=== PATIENT | male | born 1965 | race Caucasian/White ===

== ENCOUNTER 2019-07-02 14:36 | Emergency (ER) | payer SELFPAY ==
--- NOTE | 2019-07-02 14:43 | ED Physician Documentation ---
General Adult - HISTORIAN Historian: patient - HPI Stated Complaint: hornet sting Chief Complaint: General Adult Additional Information: Patient presents to ER after being stung by ground hornets with at work today, just prior to arrival. Patient states he is allergic to bee stings and has an epipen however is not sure if he should use it. Patient states in the past he has been stung, "my vital signs go way down". He reports the last time he was stung he used his epipen and went to the urgent care. He was transferred to [facility] for further treatment. He was not admitted. He denies any shortness of breath, chest pain, nausea/vomiting or diaphoresis. Onset: minutes (20) Timing: still present Severity: moderate - ROS CONST: denies: sweating, weakness EYES/ENT: none CVS/RESP: denies: chest pain, shortness of breath GI/: denies: vomiting, nausea MS/SKIN/LYMPH: none NEURO/PSYCH: denies: headache, dizziness - PAST HX Past History: none Other History: none Surgeries/Procedures: none Allergies/Adverse Reactions: Allergies Allergy/AdvReac Type Severity Reaction Status Date / Time bee venom protein (honey bee) AdvReac Anaphylaxis Verified 07/02/19 15:07 - SOCIAL HX Smoking History: non-smoker Alcohol Use: none Drug Use: none - FAMILY HX Family History: No - REVIEWED ASSESSMENTS Nursing Assessment Reviewed: Yes Vitals Reviewed: Yes Progress - Progress Progress: 1530 Patient is still asymptomatic. Patient states he is sleepy. ED Results Lab/Radiology - Orders Orders: ED Orders Category Date Time Status Place IV Lock 1T Care 07/02/19 14:38 Ordered Famotidine/Pf [Pepcid] Med 07/02/19 14:38 Once 40 mg IV NOW ONE NORMAL SALINE @ 1000 MLS/HR ( 1000ml BOLUS) Med 07/02/19 14:39 Ordered 0.9 % Sodium Chloride [Normal Saline] 1,000 ml IV Q1H diphenhydrAMINE HCL [Benadryl] Med 07/02/19 14:38 Once 50 mg IVP NOW ONE methylPREDNISolone SOD SUCC [SOLU-Medrol] Med 07/02/19 14:38 Once 125 mg IVP NOW ONE General Adult Physical Exam - PHYSICAL EXAM GENERAL APPEARANCE: no distress EENT: CASSY NECK: No: lymphadenopathy RESPIRATORY: no resp distress, chest non-tender, breath sounds normal CVS: reg rate & rhythm, heart sounds normal ABDOMEN: soft, normal bowel sounds. No: tenderness BACK: normal inspection SKIN: warm/dry, normal color EXTREMITIES: non-tender NEURO: oriented X3 Discharge Clincal Impression: Hornet sting Qualifiers: Encounter type: initial encounter Injury intent: accidental or unintentional Qualified Code(s): T63.451A - Toxic effect of venom of hornets, accidental (unintentional), initial encounter Referrals: Primary Doctor,No [Primary Care Provider] - 2 Days Additional Instructions: 1. Benedryl 50mg every 4-6 hours as needed for itch/rash 2. Follow up with PCP within 1 week 3. Use epipen if symptoms indicated 4. Return to ER for new or worsening symptoms (use of epipen) Condition: Stable Disposition: 01 HOME, SELF-CARE Decision to Admit: NO Date of Decison to Admit: 07/02/19 Decision Time: 15:31
[2019-07-02] MEDS: 0.9 % SODIUM CHLORIDE 1,000 ML IV ONE (14:50)
[2019-07-02] MEDS: diphenhydrAMINE HCL 50 MG/ML VIAL IVP ONE (14:55)
[2019-07-02] MEDS: methylPREDNISolone SOD SUCC 125 MG/2 ML VIAL IVP ONE (14:55)
[2019-07-02] MEDS: FAMOTIDINE 20 MG/2 ML VIAL IV ONE ×2 (14:55→15:08)
[2019-07-02 16:30] VITALS: BP 121/77
== END 2019-07-02 16:04 | disposition home or self-care (01) ==
LOC: ED 14:36
DX: T63.451A Toxic effect of venom of hornets, accidental (unintentional), initial encounter (principal)
CPT/HCPCS: 96360; 96374; 99283; 99284; J1200; J2930; J7030; S1016